=== PATIENT | male | born 2000 | race Caucasian/White ===

== ENCOUNTER 2021-01-15 14:04 | Emergency (ER) | payer SELFPAY ==
[2021-01-15] MEDS ORDERED: cefTRIAXone\\ROCEPHIN 500 MG VIAL ONE (14:23)
[2021-01-15 14:25] LABS: Bilirubin Negative (Negative); Blood, Urine Trace (Negative); Clarity Clear (Clear); Glucose, Urine (Dipstick) Negative (Negative); Ketone, Urine Negative (Negative); Leukocyte Large (Negative); Nitrite Negative (Negative); Protein, Urine (Dipstick) Negative (Neg-Trace); Specific Gravity, Urine 1.025 (1.005-1.030); Urobilinogen 0.2 mg/dL (Less than 2)
[2021-01-15 14:37] LABS: WBC/HPF Greater than 50 HPF (0-3)
[2021-01-15 14:38] LABS: Bacteria/HPF None Seen HPF (None Seen); Squamous Epithelial 0-3 HPF (0-3); White Blood Cell Cast 0-3 LPF (None Seen)
[2021-01-15] MEDS ORDERED: Phenazopyridine HCl 97.5 MG TABLET ONE (14:43)
[2021-01-15] MEDS ORDERED: Lidocaine 1% PF 5 ML VIAL ONE (14:43)
== END 2021-01-15 14:54 | disposition home or self-care (01) ==
LOC: BURERS 14:04
DX: A54.01 Gonococcal cystitis and urethritis, unspecified (principal); R59.0 Localized enlarged lymph nodes; F17.210 Nicotine dependence, cigarettes, uncomplicated; J45.909 Unspecified asthma, uncomplicated
CPT/HCPCS: 81003; 81015; 87491; 87591; 96372; 99283; J0696